=== PATIENT | female | born 1965 | race Two or more races ===

== ENCOUNTER 2024-09-11 19:52 | Emergency (ER) | payer MEDICAID, OTHER ==
[~2024-09-11] VITALS: Ht 157.5 cm; Wt 84.0 kg
--- NOTE | 2024-09-11 21:40 | DVH ---
CHEST RADIOGRAPH Indication: gen weak Technique: 1 view Comparison: None FINDINGS: Lines and Tubes: None Lungs: No focal consolidation. Pleura: No effusion or pneumothorax. Cardiomediastinal contours: Unremarkable. Bones: No acute osseous abnormality. IMPRESSION: 1. No acute cardiopulmonary abnormality.
[2024-09-11 21:43] LABS: Hematocrit 44.0 % (36.0-46.0); Hemoglobin 15.3 g/dL (12.2-16.2); Mean Corpuscular Hemoglobin 29.5 pg (28.0-32.0); Mean Corpuscular Volume 84.7 fL (80.0-100.0); Nucleated Red Blood Cells % 0.1 %
--- NOTE | 2024-09-11 21:50 | ED.PDOC ---
History of Present Illness HPI Comments 58 y/o obese F presents with spouse for c/c fatigue and hypertension. Patient reports having symptoms of fatigue intermittently for the past several months, with most recent episode taking place today at around 1600. Patient also reports her blood pressure was elevated in the 150's systolic despite compliance with her blood pressure medications. Denies any chest pain, shortness of breath, nausea, vomiting, fever, chills, or further associated symptoms. Chief Complaint: General Weakness Time Seen by MD: 21:00 Reviewed Notes: Nurses Notes, Medications, Allergies Allergies: Coded Allergies: NO KNOWN ALLERGIES (Unverified , 09/11/24) Home Meds Active Scripts Cephalexin Monohydrate (Cephalexin) 500 Mg Cap, 1 CAP PO QID for 10 Days, #40 CAP Prov:RUPAL SELBY MD 09/11/24 Information Source: Patient Mode of Arrival: Ambulatory Severity: Moderate Timing: Months Duration: Intermittent Prehospital treatment: None Past Medical History PAST MEDICAL HISTORY: HTN Surgical History: Denies all surgeries [employer] History: Denies all [employer] Hx Social History Smoker: Non-Smoker Alcohol: Denies ETOH Use Drugs: Denies Drug Use Lives In: Home All Other Systems: Reviewed and Negative (Comprehensive review of systems are negative unless otherwise stated in HPI) Physical Exam General Appearance: No Apparent Distress, Obese HEENT: Other (Pupils and face symmetric. Moist mucous membranes.) Neck: Full Range of Motion, Normal Inspection Respiratory: Lungs Clear, No Accessory Muscle Use, No Respiratory Distress, Normal Breath Sounds Cardiovascular: No Edema, No JVD, Regular Rate/Rhythm Breast Exam: Deferred Gastrointestinal: Non Tender, Soft Genitalia: Deferred Pelvic: Deferred Rectal: Deferred Extremities: Normal inspection, Normal range of motion, Non-tender, No pedal edema Neurologic: Alert (Oriented x4), Normal Affect, Normal Mood, Other (Ambulatory without difficulty) Cerebellar Function: NOT DONE Reflexes: NOT DONE Skin: Dry, Normal Color, Warm Lymphatic: NOT DONE Was a procedure done? Was a procedure done?: No EKG EKG : Comments Sinus tach, rate 123, normal intervals, left axis deviation, normal QRS, nonspecific T change. Differential Dx Considerations may include: Arrhythmia, Hypovolemia/dehydration, electrolyte imbalance, UTI, URI, viral syndrome, stress-induced, infection, thyroid disease, among others X-Ray, Labs, Meds, VS Vital Signs Date Time Temp Pulse Resp B/P (MAP) Pulse Ox O2 Delivery O2 Flow Rate FiO2 09/12/24 03:35 110/72 09/12/24 03:33 97.9 89 20 110/72 (85) 99 97.9 09/12/24 02:35 164/118 09/12/24 01:30 9 20 97 Room Air 09/12/24 01:30 97.4 99 20 134/118 (123) 97 97.4 09/11/24 20:23 123 09/11/24 19:54 98.7 125 16 142/98 94 98.7 Lab Test 09/11/24 22:25 09/11/24 21:26 09/11/24 21:15 Range/Units Troponin I High Sensitivity < 3 L < 3 L </=34 ng/L White Blood Count 8.1 4.4-10.8 10^3/uL Red Blood Count 5.20 4.0-5.20 10^6/uL Hemoglobin 15.3 12.2-16.2 g/dL Hematocrit 44.0 36.0-46.0 % Mean Corpuscular Volume 84.7 80.0-100.0 fL Mean Corpuscular Hemoglobin 29.5 28.0-32.0 pg Mean Corpuscular Hemoglobin Concent 34.8 32.0-36.0 g/dL Red Cell Distribution Width 14.0 11.8-14.3 % Platelet Count 243 140-450 10^3/uL Mean Platelet Volume 8.6 6.9-10.8 fL Neutrophils (%) (Auto) 77.1 37.0-80.0 % Lymphocytes (%) (Auto) 15.7 10.0-50.0 % Monocytes (%) (Auto) 5.7 0.0-12.0 % Eosinophils (%) (Auto) 1.0 0.0-7.0 % Basophils (%) (Auto) 0.5 0.0-2.0 % Neutrophils # (Auto) 6.2 1.6-8.6 10 ^3/uL Lymphocytes # (Auto) 1.3 0.4-5.4 10 ^3/uL Monocytes # (Auto) 0.5 0-1.3 10 ^3/uL Eosinophils # (Auto) 0.1 0-0.8 10 ^3/uL Basophils # (Auto) 0 0-0.2 10 ^3/uL Nucleated Red Blood Cells 0.1 % Sodium Level 141 136-145 mmol/L Potassium Level 4.0 3.5-5.1 mmol/L Chloride Level 106 98-107 mmol/L Carbon Dioxide Level 24 20-31 mmol/L Anion Gap 11 5-15 Blood Urea Nitrogen 17 9-23 mg/dL Creatinine 0.98 0.550-1.02 mg/dL Glomerular Filtration Rate Calc 68 >90 mL/min BUN/Creatinine Ratio 17.3 10.0-20.0 Serum Glucose 130 H 74-106 mg/dL Calcium Level 9.3 8.7-10.4 mg/dL B-Type Natriuretic Peptide 10.41 0-100 pg/mL Free Thyroxine Index Pending Thyroxine (T4) Pending Triiodothyronine (T3) Uptake Pending Urine Color Light-yellow Yellow Urine Clarity Clear Clear Urine pH 6.0 5.0-9.0 Urine Specific [place] 1.012 1.001-1.035 Urine Protein Negative Negative Urine Ketones Negative Negative Urine Blood Negative Negative /uL Urine Nitrite Negative Negative Urine Bilirubin Negative Negative Urine Urobilinogen Normal Negative mg/dL Urine Leukocyte Esterase 1+ Negative /uL Urine RBC 2 0 - 4 /hpf Urine Microscopic WBC 8 H 0-5 /HPF Urine Squamous Epithelial Cells Few <5 /hpf Urine Bacteria None seen None Seen /hpf Urine Yeast (Budding) Occasional None Seen /hpf Urine Glucose Normal Normal mg/dL Current Medications Medications (Trade) Dose Ordered Sig/Bernard Route Start Time Stop Time Status Last Admin Fluconazole (Diflucan Tablet) 200 mg ONCE ONCE PO 09/11/24 23:15 09/11/24 23:16 HI 09/12/24 02:03 Sodium Chloride 2,000 ml @ 1,000 mls/hr Q2H ONCE IV 09/11/24 23:15 09/12/24 01:14 DC 09/11/24 23:15 Ceftriaxone Sodium 50 ml @ 100 mls/hr ONCE ONCE IV 09/11/24 23:15 09/11/24 23:44 HI 09/12/24 01:47 Clonidine HCl (Catapres Tablet) 0.2 mg ONCE ONCE PO 09/12/24 02:15 09/12/24 02:16 DC 09/12/24 02:35 [facility] [id number] [place] [id number] Ph: [phone] DIAGNOSTIC IMAGING Diagnostic Imaging Report : [id number] Signed PATIENT: DU MANN ACCT: [id number] UNIT: [id number] : 1965 LOC: ER ROOM / BED: / AGE / SEX: 58 / F ADM STATUS: REG ER SERVICE 11 ORDERING PHYSICIAN: RUPAL SELBY MD PROCEDURE(s): CXRP - CHEST PORTABLE REASON: gen weak ORDER NUMBER(s): [id number], ACCESSION NUMBER(s): [id number] CHEST RADIOGRAPH Indication: gen weak Technique: 1 view Comparison: None FINDINGS: Lines and Tubes: None Lungs: No focal consolidation. Pleura: No effusion or pneumothorax. Cardiomediastinal contours: Unremarkable. Bones: No acute osseous abnormality. IMPRESSION: 1. No acute cardiopulmonary abnormality. ATED BY: DARYA LARA MD DICTATED DATE/TIME: 09/11/242136 SIGNED BY: DARYA LARA MD SIGNED DATE/TIME: 09/11/242136 CC: X-Ray, Labs, Meds, VS Comment 58-year-old female with a history of hypertension complaining of generalized weakness intermittently for the past 5 months, worse over the past few days Vitals remarkable for heart rate 125 Exam remarkable for tachycardia Rhythm strip independently interpreted by me: Sinus tach, rate 123, no ectopy. Chest x-ray unremarkable CBC, basic metabolic panel, BNP and troponins unremarkable for any abnormality of acute significance. UA abnormal consistent with UTI, also showing occasional yeast Patient treated with the following in the ED: 1 L 0.9 normal saline IV bolus, Rocephin 1 g IV, Diflucan 200 mg p.o. On re-evaluation, heart rate has improved. Other vitals were stable. Patient appears stable for discharge with close outpatient follow-up with her pr imary physician. Rx Keflex Time of 1ST Reevaluation: 21:30 Reevaluation 1ST: Unchanged Patient Education/Counseling: Diagnosis, Treatment, Need For Follow Up Family Education/Counseling: Diagnosis, Treatment, Need For Follow Up SEPSIS Sepsis Screen Date sepsis recognized/suspect: Sep 11, 2024 Time Sepsis recognized/suspect: 1953 Recent Procedure: No On Antibiotic Therapy: No Respiratory Rate >20: No Heart Rate >90: Yes Temp<36 C (96.8 F) or >38.3 C: No SBP <90 or MAP <65 mmHG: No New Acute Mental Status Change: No Is the patient on CPAP, BIPAP,: No SEPSIS EXCLUSION NOTE: Sepsis Exclusion Note: Patient presents with SIRS criteria, but the SIRS response is attributed to [hypovolemia ], not sepsis. Sepsis bundle is not initiated at this time, due to this reason. Further management will focus on the treatment of the above condition (s). Physician Orders Chest Portable (09/11/24 21:12) Electrocardigram (09/11/24 21:12) Thyroid Panel (09/11/24 21:12) Vital Signs Date Time Temp Pulse Resp B/P (MAP) Pulse Ox O2 Delivery O2 Flow Rate FiO2 09/12/24 03:35 110/72 09/12/24 03:33 97.9 89 20 110/72 (85) 99 97.9 09/12/24 02:35 164/118 09/12/24 01:30 9 20 97 Room Air 09/12/24 01:30 97.4 99 20 134/118 (123) 97 97.4 09/11/24 20:23 123 09/11/24 19:54 98.7 125 16 142/98 94 98.7 Laboratory Tests Test 09/11/24 21:26 White Blood Count 8.1 10^3/uL (4.4-10.8) Medications Medications Dose Ordered Sig/Bernard Route Start Time Stop Time Status Last Admin Dose Admin Ceftriaxone Sodium 50 ml @ 100 mls/hr ONCE ONCE IV 09/11/24 23:15 09/11/24 23:44 DC 09/12/24 01:47 Clonidine HCl 0.2 mg ONCE ONCE PO 09/12/24 02:15 09/12/24 02:16 DC 09/12/24 02:35 Fluconazole 200 mg ONCE ONCE PO 09/11/24 23:15 09/11/24 23:16 DC 09/12/24 02:03 Sodium Chloride 2,000 ml @ 1,000 mls/hr Q2H ONCE IV 09/11/24 23:15 09/12/24 01:14 DC 09/11/24 23:15 Departure 1 Departure Time of Disposition: 23:12 Impression: Primary Impression: UTI (urinary tract infection) Additional Impression: Vaginal candidiasis Disposition: HOME / SELF CARE / HOMELESS Condition: Fair Additional Instructions: Your blood tests, including screening test for heart attack and heart failure, were unremarkable. Your chest x-ray was normal. Your urine test showed you johnson ve a mild infection, also a mild yeast infection. I have prescribed antibiotics to treat your urinary tract infection. We have given you antifungals here for treatment of your yeast infection. Follow-up with your primary doctor in 1-2 days. Return to ER for persistent or worsening symptoms. e-Prescriptions Cephalexin Monohydrate (Cephalexin) 500 Mg Cap 1 CAP PO QID for 10 Days, #40 CAP Prov: RUPAL SELBY MD 09/11/24 Discharged With: Spouse Critical Care Note Critical Care Time?: No Stability Stability form required: No Heart Score Heart Score: Heart Score Response (Comments) Value History N/A 0 EKG N/A 0 Age N/A 0 Risk Factors N/A 0 Troponin N/A 0 Total 0 I personally scribed for RUPAL SELBY MD ([email or web address]) on 09/11/24 at 21:50. Electronically submitted by Osvaldo Ferguson ([email or web address]). I personally scribed for RUPAL SELBY MD ([email or web address]) on 09/11/24 at 21:51. Electronically submitted by Osvaldo Ferguson ([email or web address]). RUPAL SELBY MD Sep 11, 2024 21:50
[2024-09-11 21:53] LABS: Chloride 106 mmol/L (98-107); Potassium 4.0 mmol/L (3.5-5.1); Sodium 141 mmol/L (136-145)
[2024-09-11 21:54] LABS: Anion Gap 11 (5-15); Carbon Dioxide 24 mmol/L (20-31)
[2024-09-11 21:55] LABS: Calcium 9.3 mg/dL (8.7-10.4)
[2024-09-11 22:00] LABS: BUN/Creatinine Ratio 17.3 (10.0-20.0); Blood Urea Nitrogen 17 mg/dL (9-23)
[2024-09-11 22:08] LABS: Glucose 130 mg/dL (74-106)
[2024-09-11 22:16] LABS: Urine Budding Yeast OCCASIONAL /hpf (None Seen); Urine Protein, UAD Negative (Negative)
[2024-09-11] MEDS ORDERED: CEPH500C PO (23:13)
[2024-09-11] MEDS: SODIUM CHLORIDE 0.9% 2,000 ML IV ONE (23:15)
[2024-09-12] MEDS: cefTRIAXone 1GM/50ML D5W 50 ML IV ONE (01:47)
[2024-09-12] MEDS: FLUCONAZOLE 100 MG TAB PO ONE (02:03)
[2024-09-12 03:33] VITALS: BP 110/72; PULSE 89; RESP 20; TEMP 97.9; O2SAT 99
--- NOTE | 2024-09-13 06:37 | ECG ---
[facility] Test Date: 2024-09-11 Test Time: 20:23:16 Pat Name: DU MANN Department: ER Room: Gender: F Math Interventionist: RILEY : 1965 Requested By: RUPAL GIBSON Order Number: [id number] Reading MD: Measurements Intervals [place] Rate: 123 P: 32 OK: 197 QRS: -6 QRSD: 78 T: 171 QT: 270 QTc: 387 Interpretive Statements Sinus tachycardia Borderline prolonged OK interval Probable left atrial enlargement Probable LVH with secondary repol abnrm Please click the below link to view image of tracing.
[2024-09-13 08:07] LABS: Free Thyroxine Index 2.7 (1.2-4.9)
== END 2024-09-12 03:30 | disposition home or self-care (01) ==
LOC: ER 19:52
DX: N39.0 Urinary tract infection, site not specified (principal); B37.31 Acute candidiasis of vulva and vagina; I10 Essential (primary) hypertension; E66.9 Obesity, unspecified; Z79.899 Other long term (current) drug therapy; Z68.33 Body mass index [BMI] 33.0-33.9, adult
CPT/HCPCS: 36415; 71045; 80048; 81001; 83880; 84443; 84484; 85025; 93005; 96361; 96365; 99285; J0696; J7030